=== PATIENT | male | born 1955 | race Caucasian/White ===

== ENCOUNTER 2019-02-15 14:09 | Day surgery (SDC) | payer BC ==
[~2019-02-15] VITALS: Ht 188 cm; Wt 102.7 kg
[2019-02-15 15:25] VITALS: BP 185/89; PULSE 84; TEMP 98.3
--- NOTE | 2019-02-15 15:46 | NUR ---
Patient arrived ambulatory to room independently obviously in pain. Was assisted to bed, new orders received and urology consulted for kidney stone. Patient was made comfortable. Inventory and VS obtained. Call light and personal belongings are within reach.
[2019-02-15 19:50] VITALS: BP 127/67; PULSE 81; TEMP 98.4
--- NOTE | 2019-02-15 20:55 | NUR ---
PT, Dr. Mckinney. removed own IV and left premesis without signing discharge paperwork or completing verbal discharge. PT had completed IV, urinated, drank water, and completed post-op VS. PT was unable to be reached via personal cell phone after multiple attempts; PT communicated with staff that he was ready to be D/C and when this nurse arrived to the room approximately 10 minutes later, the PT left hospital property. [place]
== END 2019-02-15 20:00 | disposition home or self-care (01) ==
LOC: SDCO 14:09 → MEDICAL 14:09 → SDCO 20:00
DX: N20.2 Calculus of kidney with calculus of ureter (principal); F17.210 Nicotine dependence, cigarettes, uncomplicated
CPT/HCPCS: OP; 99214; C1769; C2617; J0690; J2270; J2405; J2704; J3010; J7030; J7120; Q9967

== ENCOUNTER → 2024-05-21 | Outpatient (CLI) | payer MEDICARE, BC | LOC: COL.RAD 14:32 | DX: R91.1 Solitary pulmonary nodule (principal) ==